=== PATIENT | male | born 1950 | race Caucasian/White ===

== ENCOUNTER 2022-01-07 14:19 | Outpatient (CLI) | payer OTHER, SELFPAY ==
--- NOTE | 2022-01-07 11:30 | DI.RAD_ITS ---
Exam(s) XR HAND LT COMPLETE XR WRIST LT COMPLETE EXAM: XR WRIST LT COMPLETE CLINICAL HISTORY: LT Wrist Pain M25.532 - Effusion M25.432 - Fall W19.XXXA. TECHNIQUE: 2D digital imaging was performed. Three views of the wrist and three views of the hand w ere performed.. COMPARISON: CR XR HAND LT COMPLETE from 01/07/2022 FINDINGS: BONES: No acute fracture is present. No bony destructive lesion is seen. 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 JOINTS: The carpal bones are normally aligned. Mild degenerative changes. SOFT TISSUE: Soft tissue swelling over the the dorsal metacarpal region. Mild vascular calcification s. IMPRESSION: Dorsal soft tissue swelling. No acute fracture. DATA REPOSITORY: RADIATION DOSE DELIVERED:
== END 2022-01-07 14:39 ==
PROVIDERS: PCP Family Medicine; Visit Provider Nurse Practitioner
DX: M25.432 Effusion, left wrist (principal); M25.532 Pain in left wrist; W19.XXXA Unspecified fall, initial encounter; M79.642 Pain in left hand; M79.89 Other specified soft tissue disorders
CPT/HCPCS: 73110; 73130

== ENCOUNTER 2022-06-10 03:26 | Outpatient (CLI) | payer OTHER, SELFPAY ==
[2022-06-10 11:08] LABS: ALT 26 U/L (16-63); AST 12 U/L (15-37); Albumin 3.9 g/dL (3.4-5.0); Alkaline Phosphatase 65 U/L (46-116); Anion Gap 8.1 mmol/L (3-11); BUN 30 mg/dL (7-18); Bilirubin, Total 0.4 mg/dL (0.2-1.0); CO2 29.9 mmol/L (21.0-32.0); CREATININE 1.1 mg/dL (0.70-1.30); Calcium 9.5 mg/dL (8.5-10.1); Chloride 102 mmol/L (98-107); Cholesterol 233 mg/dL (<200); Estimated GFR 70.88 (mL/min/1.73m2); Glucose 115 mg/dL (74-106); HDL Cholesterol 41 mg/dL (40-60); Potassium 4.4 mmol/L (3.5-5.1); Sodium 140 mmol/L (136-145); Triglyceride 478 mg/dL (<150)
[2022-06-10 11:20] LABS: LDL CHOLESTEROL 113 mg/dL (<100)
== END 2022-06-10 03:27 | disposition home or self-care (01) ==
LOC: LBO 03:26
PROVIDERS: PCP Family Medicine; Visit Provider Family Medicine
DX: I10 Essential (primary) hypertension (principal); M21.611 Bunion of right foot; M21.612 Bunion of left foot
CPT/HCPCS: 36415; 80053; 80061; 83721; 84550

== ENCOUNTER 2023-12-14 04:55 | Outpatient (CLI) | payer OTHER, MEDICAID, SELFPAY ==
[2023-12-14 09:59] LABS: Anion Gap 9.7 mmol/L (3-11); BUN 26 mg/dL (7-18); CO2 29.3 mmol/L (21.0-32.0); CREATININE 1.2 mg/dL (0.70-1.30); Calcium 9.5 mg/dL (8.5-10.1); Chloride 102 mmol/L (98-107); Estimated GFR 63.46 (mL/min/1.73m2); Glucose 122 mg/dL (74-106); Potassium 4.4 mmol/L (3.5-5.1); Sodium 141 mmol/L (136-145)
[2023-12-14 10:48] LABS: Calculated LDL 110 mg/dL (<100); Cholesterol 214 mg/dL (<200); HDL Cholesterol 51 mg/dL (40-60); Triglyceride 268 mg/dL (<150)
== END 2023-12-14 04:56 | disposition home or self-care (01) ==
LOC: LBO 04:55
PROVIDERS: Absent Provider Family Medicine; PCP Student in an Organized Health Care Education/Training Program; Visit Provider Family Medicine
DX: I10 Essential (primary) hypertension (principal); E79.0 Hyperuricemia without signs of inflammatory arthritis and tophaceous disease
CPT/HCPCS: 36415; 80048; 80061; 84550

== ENCOUNTER 2024-06-02 16:27 | Outpatient (REF) | payer OTHER, MEDICAID, SELFPAY ==
--- NOTE | 2024-06-02 13:15 | SKI_PTH ---
PATIENT: Juan J Diamond LOC: [facility] U#:[id number] AGE/SX: 74/M ROOM: RE06/02/[address]: Jose Ken DO : 1950 BED: DIS: 06/02/2024 SPEC #: [id number] RECD: 06/02/24 18:31 STATUS: KAYLAH REQ #: [id number] JAMES: 06/02/24 13:[address]: Jose Ken DEPT: Surgical Specimen RECD BY: Bridget Campos ENTERED: 06/02/24 18:32 SP TYPE: SKI OTHR DR: Gunjan Doherty DO Tissues: 1 - SKIN BIOPSY(SHAVE/PUNCH) Procedures: SKIN LEVEL 4 Comments: [id number]
== END 2024-06-02 16:28 | disposition home or self-care (01) ==
LOC: LBN 16:27
PROVIDERS: PCP Student in an Organized Health Care Education/Training Program; Visit Provider Otolaryngology Otolaryngology/Facial Plastic Surgery
DX: H61.91 Disorder of right external ear, unspecified (principal); L98.9 Disorder of the skin and subcutaneous tissue, unspecified; H61.001 Unspecified perichondritis of right external ear
CPT/HCPCS: 88305

== ENCOUNTER 2025-01-03 13:10 | Emergency (ER) | payer MEDICARE, MEDICAID, SELFPAY ==
[2025-01-03] VITALS (39 sets, daily range): BP systolic 148–199; BP diastolic 65–77; PULSE 58–83; RESP 13–57; TEMP 37; O2SAT 92–98
--- NOTE | 2025-01-03 13:30 | RT.EKG_ITS ---
APPROVED REPORT Exam: Resting ECG Reason for Exam: ataxia dizziness Patient Location: E HR:64 bpm ECG Measurements Heart Rate 64 AXIS WI 162 P 40 QRSd 94 QRS 53 QT 393 T 58 QTc 407 Conclusion Sinus rhythm...normal P axis, V-rate 60- 99 Physician: No Stemi
--- NOTE | 2025-01-03 13:30 | DI.CT_ITS ---
Exam(s) CT BRAIN NECK CTA EXAM: CT BRAIN NECK CTA CLINICAL HISTORY: ataxia x2 months, hx CVA, family Hx brain Ca. TECHNIQUE: Imaging Protocol: Axial CT angiography was performed with multi-slice acquisition and mu lti-planar and/or 3D reconstructions. CONTRAST MATERIAL: Intravenous: Omnipaque 350 Contrast volume:70 mL COMPARISON: No exams were available for comparison FINDINGS: CTA Neck W: Aortic arch anatomy: The aortic arch anatomy is conventional and there is no significant stenosis at the origin of the great vessels off of the aortic arch. No intimal flap evident. Anterior circulation: Both common carotid arteries ascend with normal luminal diameters. At the level the carotid bulbs and proximal internal carotid arteries there is both calcified and non calcified plaque seen bilaterally. There is approximately 50-60 percent stenosis in the proximal rig ht ICA. Approximately 30 percent stenosis in the proximal left ICA. In the upper neck both internal carotid arteries are patent as well as within the skull base-carotid canals. Posterior circulation: The left vertebral artery originates off of the left subclavian artery without obvious stenosis at it s origin nor in the left subclavian artery proximal to the vertebral artery takeoff point. The left vertebral artery is dominant and ascends within the foramen transversarium with a luminal diameter 3. 5-4.0 mm. No stenosis nor dissection this vessel evident. There is peripheral mural calcification i n the left vertebral artery at the skull base. Some none critical stenosis at this level noted. a the right vertebral artery does not appear opacified proximally but is a thin opacified vessel in t he right foramen transversarium at and above the C5 level. This thinner right vertebral artery also does contribute to the formation of the basilar artery at the skull base. CTA Brain W: Anterior circulation: Both internal carotid arteries are patent in the skull base-carotid canals as well as within the cave rnous sinuses. There is circumferential calcification of the infer cavernous internal carotid arteri es bilaterally but without a critical stenosis in their lumens at these levels. The supraclinoid asp ects are patent and non stenotic nor nonaneurysmal. Both A1 segments are patent as are the anterior cerebral arteries and there is no aneurysm at the level the anterior communicating artery. Both middle cerebral arteries are patent a without significant stenosis nor aneurysms Posterior circulation: Basilar artery ascends without significant stenosis. Distally gives off superior cerebellar arteries and above this level terminates as posterior cerebral arteries. The right P1 segment is more narrow than the left but there is a posterior communicating artery on the right side of the mhaqbz-of-Zhkrq s also feeding the right ST[employer] DRI[employer]. There is no evidence of aneurysm at the tip of the basilar artery nor elsewhere in the yuvajq-ze-Kzks is. CT BRAIN: There are no skull fractures. Hyperostosis frontalis interna is noted. There is some more than typi mono lucency in the right-side of the skull with in the right temporal bone. There is no evidence of intracranial hemorrhage but there is a E large enhancing dural-based mass ove r the right convexity measuring 5.3 cm AP 4 cm wide by 2.7 cm craniocaudal which is probably a promin ent meningioma. There is some associated mass effect and adjacent edema.. Ventricular size is rudi l. Septum cavum pellucidum noted. There is no blood within the ventricular system nor within the ba brijesh cisterns. No shift of midline structures There is abundant bilateral periventricular hypodensity consistent with chronic small vessel disease. There also lacunar infarcts in the right more than left cerebellar hemispheres. IMPRESSION: 1. There is both calcified and noncalcified plaque at the level the carotid bulbs and proximal customer marketing intern al carotid arteries. Amount of stenosis on the right side at this level is approximately 50-60 perce nt. Amount of stenosis on the left side at this level appears less, proximally 30 percent stenosis i n the proximal left ICA. 2. Left vertebral artery is patent. The thinner right vertebral artery is only opacified at and abo ve the C5 level. It does contribute to the formation of the basilar artery at the skull base. 3. Patent intracranial arteries. 4. Large uniformly enhancing dural-based mass in the right fronto-parietal lobe region which measures 5.3 x 4.0 x 2.7 cm and is most probably a meningioma. There is mild adjacent mass effect. No shift of midline structures. 5. There are no ring enhancing lesions in the brain. No intracranial hemorrhage 6. Abundant periventricular white matter hypodensity consistent with chronic small vessel disease and there also lacune are infarcts in the bilateral cerebellar hemispheres, right more so than left. Follow-up MRI recommended. Report called by myself to ER physician 01/03/2025 at 3:40 p.m. RADIATION DOSE DELIVERED: 2,268.01mGy.cm Total DLP DATA REPOSITORY: All CT scans at this facility are submitted to the National Radiology Data Registry (NRDR) Dose Index Registry (DIR) with the [employer] (A[employer]). RADIATION OPTIMIZATION: All CT scans at this facility use at least one of these dose optimization te chniques: automated exposure control; mA and/or kV adjustment per patient size (includes targeted exa ms where dose is matched to clinical indication); or iterative reconstruction.
--- NOTE | 2025-01-03 13:45 | ED.GENADUL_ITS ---
Discharge Plan Disposition Patient Disposition: Against Medical Advice Condition: Fair Discharge Details Clinical Impression: Ataxia, Hypertension, Hyperlipidemia, Cerebellar stroke, Brain mass Primary Care Provider: Gunjan Doherty ED Provider: Jessie Liao Home Meds and New Rx's Prescriptions: No Action potassium chloride 10 mEq packet 10 meq PO DAILY [id number] Tablet 1 tab PO DAILY lactic acid-urea 10-40 % gel 1 applic topical BID Qty: 120 0RF magnesium oxide 500 mg capsule 1,000 mg PO DAILY cholecalciferol (vitamin D3) 50 mcg (2,000 unit) capsule 50 mcg PO DAILY aspirin 81 mg tablet,delayed release (DR/EC) 81 mg PO DAILY ascorbic acid (vitamin C) 500 mg capsule 500 mg PO DAILY krill oil 3,000 mg PO DAILY lisinopril-hydrochlorothiazide 20-25 mg tablet 1 tab PO DAILY Qty: 90 3RF Discharge Instructions Instructions: Brainstem Stroke Additional Instructions: You were seen in the emergency department today for evaluation of ataxia, meaning poor balance during walking, and were found on CT scan to have evidence of stroke in the area of your brain that controls your balance. In our department you were also noted to have a large mass on the right side of your brain, probably a meningioma. However, you have elected to leave the hospital AGAINST MEDICAL ADVICE prior to meeting with the teleneurologist, and before we were able to get further imaging such as an MRI to better characterize these fi ndings. A referral was sent to neurosurgery, and they will have to order any outpatient scans for you. You are always welcome to return to the emergency department, at which time we would recommend getting MRI imaging and may continue to recommend neurology visit, admission, and changes to your medications. Please follow-up with your primary care provider in the next few days to discuss this visit and any symptoms that change, worsen, or persist. Thank you for allowing us to be part of your care. HPI General Mode of arrival: ambulatory . Date/Time Provider Initiated Documentation: 01/03/25 13:13 . Limitations to Documentation: no limitations . Information obtained by: patient, family and old records reviewed . HPI Narrative: This is a 74-year-old male patient with a history of CVA without significant residual deficits other than blurry vision, history of hypertension and hyperlipidemia who is presenting for evaluation of 2 months of ataxia, suddenly worsening yesterday. He reports experiencing difficulty in maintaining balance during ambulation, states that he feels like he is drunk. This symptom has been present for approximately 2 months, with varying intensity. He notes a recent exacerbation of these symptoms over the past two days. He has been supplementing with vitamin D and vitamin K at high doses, and other supplements and vitamins. He also reports no recent falls or injuries, including head trauma. He does not experience any weakness or numbness in his body. His appetite and hydration status are normal, with a reported intake of 2 quarts of water yesterday. He is currently on lisinopril and a vitamin D supplement containing potassium, has started an ashgawanda supplement but this was initiated after the onset of his ataxia. He has a history of stroke in 1999, which resulted in memory impairment and blurry vision but no physical deficits. He has been experiencing blurred vision for several years, which has remained stable. He does not report any associated headaches or vertigo. 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 Related Data Home Medications ?Medication ?Instructions ?Recorded ?Confirmed ascorbic acid (vitamin C) 500 mg 500 mg PO DAILY 12/08/21 01/03/25 capsule aspirin 81 mg tablet,delayed 81 mg PO DAILY 12/08/21 01/03/25 release cholecalciferol (vitamin D3) 50 50 mcg PO DAILY 12/08/21 01/03/25 mcg (2,000 unit) capsule magnesium oxide 500 mg capsule 1,000 mg PO DAILY 12/08/21 01/03/25 krill oil 3,000 mg PO DAILY 03/10/24 01/03/25 lisinopril 20 1 tab PO DAILY #90 tabs 03/19/24 01/03/25 mg-hydrochlorothiazide 25 mg tablet [id number] tablet 1 tab PO DAILY 06/27/24 01/03/25 lactic acid 10 %-urea 40 % topical 1 applic topical BID #120 grams 06/27/24 01/03/25 gel potassium chloride 10 mEq oral 10 meq PO DAILY 06/27/24 01/03/25 packet Previous Rx's ?Medication ?Instructions ?Recorded lisinopril 20 1 tab PO DAILY #90 tabs 03/19/24 mg-hydrochlorothiazide 25 mg tablet lactic acid 10 %-urea 40 % topical 1 applic topical BID #120 grams 06/27/24 gel Allergies Allergy/AdvReac Type Severity Reaction Status Date / Time No Known Allergies Allergy Verified 01/03/25 13:21 General Stated Complaint: Dizzy/Sync CRESENCIO: 3 Exam Narrative Exam Narrative: Gen: awake and alert, in no apparent distress. Appears well nourished. HEENT: PERRL, EOMs full and without nystagmus, and EOMs do not exacerbate the patient's dizziness/vertigo. External ears and nose normal, TMs clear mucous membranes moist. Neck: Supple, full range of motion, no observable masses Lungs: No increased work of breathing, lung sounds clear and equal bilaterally without wheezes, rhonchi, or rales. CV: Heart with regular rate and rhythm, no murmurs auscultated. Strong and symmetrical radial pulses. Abdomen: Soft, nondistended, non-tender to palpation. No rigidity, rebound tenderness, or guarding. MSK: No joint swelling, no redness. Full ROM without limitation, no external traumatic findings. Skin: No rashes or lesions to visualized skin. Normal color, warm, and dry. Neuro: Cranial nerves II-XII intact and symmetrical bilaterally. 5/5 strength in all muscle groups x4 extremities. No sensory deficits. Ambulates with steady gait though the patient is noted to occasionally use arms to preserve balance. No difficulties with adtcwv-vp-mcto or sqdc-dg-unfs testing. Psych: Appropriate for situation. Course Vital Signs Vital signs: Vital Signs Temperature 37.0 C 01/03/25 13:16 Pulse 75 01/03/25 13:16 Respiratory Rate 20 01/03/25 13:16 Blood Pressure 148/71 H 01/03/25 13:16 Pulse Oximetry 95 01/03/25 13:16 Temperature 37.0 C 01/03/25 13:16 Pulse 75 01/03/25 13:16 Respiratory Rate 20 01/03/25 13:16 Respiratory Effort Normal 01/03/25 13:38 Respiratory Depth Normal 01/03/25 13:38 Respiratory Pattern Normal 01/03/25 13:38 Blood Pressure 148/71 H 01/03/25 13:16 Blood Pressure Position Sitting 01/03/25 13:16 Pulse Oximetry 95 01/03/25 13:16 Oxygen Delivery Method Room Air 01/03/25 13:16 Oxygen Flow Rate 0 01/03/25 13:16 Medical Decision Making In brief, this is a 74-year-old male patient with a history of CVA, hyperlipidemia, and hypertension who is presenting for evaluation of 2 months of worsening ataxia and dizziness. At this time, the patient is reassuringly without active dizziness, though he does feel like his gait is continuing to be affected. My differential includes but is not limited to intracranial abnormality including stroke, hemorrhage, vascular abnormality, mass effect (patient reports a family history of brain tumors and he himself is most concerned about this etiology). I considered inner ear abnormalities including M?ni?re's disease, labyrinthitis, timing of symptoms would be less consistent with BPPV. I considered metabolic and electrolyte derangements, vitamin deficiencies, specifically B12 given its role in proprioception. Considered ACS, arrhythmia. The patient at this time is reassuringly neuro intact, hemodynamically appropriate. We will obtain an EKG, laboratory studies to include CBC, CMP, magnesium, troponin, and INR. Will proceed with CTA of the brain and neck to better characterize any abnormalities which might explain his symptoms. - I independently interpreted the laboratory studies, which show no significant leukocytosis, anemia, or thrombocytopenia. The chemistry panel is without evidence of electrolyte abnormality or liver injury. The patient does have a mild elevation in his kidney function with a BUN of 26 and a creatinine of 1.6. INR is 1.0, vitamin B12 is supratherapeutic at 1300. Troponin negative[address] CT was reviewed by myself and discussed with the radiologist. The patient has evidence of multiple cerebellar lacunar strokes, likely the cause of his ataxia. He also has a large right sided lesion, concerning for meningioma. Given the size, which is in excess of 5 cm, it is unclear if this could be contributing to the symptoms as well, though there is minimal mass effect noted on the scan. Given this finding I did reach out to [facility] to discuss the case with neurosurgery. I am not able to get an MRI at this hospital today, and anticipate that the patient could benefit from admission for stroke medication optimization, and MRI tomorrow. I did discuss the case with the neurosurgeon at [facility] who recommended this, stating that MRI in the morning was the preferred recommendation. The patient unfortunately elected to leave the hospital AMA despite multiple shared decision-making conversations by this provider, prior to having his visit with the [facility] teleneurologist. The patient has capacity to make this decision, understands the risks associated with leaving the hospital prior to optimization of his medical management and definitive imaging. He understands that he can return to the emergency department at anytime for reevaluation, and a referral to neurosurgery and neurology will be made on behalf of the patient so that he at least can have outpatient follow-up for his conditions identified today. The patient left our facility without further incident. Jessie Liao MD Medical Records Medical records reviewed: Yes I reviewed the patient's medical records. Lab Data Lab results reviewed: Yes I reviewed the patient's lab results. Quality:SDOH Health Related Social Needs: No Data to Display [facility] All Active Problems (Updated 01/03/25 @ 17:57 by Jessie Liao MD) Brain mass (Acute) Cerebellar stroke (Acute) Ataxia (Acute) Actinic keratoses (Acute) Skin lesion of right ear (Acute) Rt [place], sun-exposure presumed Hyperuricemia (Acute) Hyperlipidemia (Chronic) [place] score 48% in 2021 Bilateral bunions (Acute) Wears hearing aid in both ears (Acute) Hypertension (Chronic) Medical History (Updated 01/03/25 @ 17:57 by Jessie Liao MD) CVA (cerebral vascular accident) (~1999) Surgical History (Updated 12/17/22 @ 17:11 by Charity Richard) History of laser iridotomy (08/24/22) Left eye - Dr Jain @ [facility] Family History (Updated 12/02/21 @ 14:46 by Angy Galdamez) Mother Cancer brain Diabetes Father Hypertension Social History (Updated 12/10/22 @ 15:50 by Charity Richard) Smoking/Tobacco Use Status: Never Second Hand Exposure: No Smoking risk assessment performed?: Yes Alcohol Intake: current Alcohol Intake frequency: a few times a month Drug use: Never Substance use type: does not use Adopted: No Caregiver/Support person: No Foster care: No Housing: apartment Number of Children: 1 number of grandchildren: 0 Communication Needs: None Education Level: vocational Do you need help understanding health information?: Often Pets and animals: No Sexually active: No Do you think of yourself as: straight/heterosexual Current gender identity: male What is your relationship status?: How often do you talk on the phone with friends or family?: three or more times per week How often do you get together with friends or relatives?: three or more times per week Do you belong to any clubs or organized social groups?: no Panel score (0-1 are the most socially isolated patients): 1 What type of physical activity do you participate in: decline to answer Duration: decline to answer Frequency: decline to answer Maeve/Scientology: Uatsdin Special maeve needs: Yes Agree to transfusion: No Seatbelt use: always Helmet use: Yes Drive intox or ride w/intox warehouse delivery driver: No
[2025-01-03 13:49] LABS: Abs Immature Grans 0.04 10^3/uL (0.0-0.06); Absolute Basophil Count 0.03 10^3/uL (0.0-0.2); Absolute Eosinophil Count 0.17 10^3/uL (0.0-0.7); Absolute Lymphocyte Count 2.42 10^3/uL (1.2-3.4); Absolute Monocyte Count 1.16 10^3/uL (0.1-0.8); Absolute Neutrophil Count 6.75 10^3/uL (1.2-6.7); Basophils % 0.3 %; Eosinophils % 1.6 %; HCT 48.3 % (40.0-50.0); HGB 16.5 g/dL (13.5-17.5); Immature Grans % 0.4 %; Lymphocytes % 22.9 %; MCH 32.7 pg (27.0-33.0); MCHC 34.2 % (32.0-36.0); MCV 96 fL (80-95); MPV 11.4 fL (8.0-11.0); Neutrophils % 63.8 %; Platelet Count 172 10^3/uL (130-400); RBC 5.04 10^6/uL (4.36-5.78); RDW 12.3 % (11.8-14.1); RDW-SD 43.6 fL; WBC 10.57 10^3/uL (4.4-10.8)
[2025-01-03 14:03] LABS: Prothrombin Time 10.2 sec (9.1-11.1)
[2025-01-03 14:06] LABS: ALT 35 U/L (16-63); AST 30 U/L (15-37); Albumin 4.1 g/dL (3.4-5.0); Alkaline Phosphatase 77 U/L (46-116); Anion Gap 8.7 mmol/L (3-11); BUN 26 mg/dL (7-18); Bilirubin, Total 0.9 mg/dL (0.2-1.0); CO2 31.3 mmol/L (21.0-32.0); CREATININE 1.6 mg/dL (0.70-1.30); Calcium 9.7 mg/dL (8.5-10.1); Chloride 101 mmol/L (98-107); Estimated GFR 44.65 (mL/min/1.73m2); Glucose 125 mg/dL (74-106); Sodium 141 mmol/L (136-145); Total Protein 8.3 g/dL (6.4-8.2); Troponin I 10 ng/L (<or=76)
[2025-01-03 14:33] LABS: Lab Add On Test DONE
[2025-01-03 15:03] LABS: Troponin I 9 ng/L (<or=76)
[2025-01-03] MEDS: Omnipaque 350 MG/ML 500 ML BTL-Imaging package IJ (15:07)
[2025-01-03] MEDS: Normal Saline - Diluent 50 ML VIAL IJ (15:08)
[2025-01-03 15:57] LABS: Vitamin B12 1335 pg/mL (193-986)
--- NOTE | 2025-01-03 17:47 | NUR.NOTE ---
Nursing Note:pt wanting to leave, discussed HERBERT grimaldo/ [facility] at bedside. Pt not wanting inpatient stay even if it is recommended. pt would prefer outpatient management of medical conditions. pt pulled of BP cuff. surveillance system monitor and o2 monitor, states wont allow me to monitor him further because he doesn't need it. pt redirected from pulling out iv. Neuro cart in room for tele neuro call. pt only accepted this because teleneuro called us back at this time. pt is axox4, independent at bedside, standing at bedside waiting for tele neuro.
--- NOTE | 2025-01-03 18:02 | NUR.NOTE ---
Nursing Note:pt was checked into tele neuro, but decided to leave AMA during.
[2025-01-15 08:17] LABS: 1,25-Dihydroxyvitamin D 45 pg/mL (18-64)
== END 2025-01-03 22:56 | disposition left against medical advice (07) ==
PROVIDERS: Emergency Provider Emergency Medicine; PCP Student in an Organized Health Care Education/Training Program
DX: I63.89 Other cerebral infarction (principal); R26.0 Ataxic gait; I67.89 Other cerebrovascular disease; I10 Essential (primary) hypertension; E78.5 Hyperlipidemia, unspecified; Z86.73 Personal history of transient ischemic attack (TIA), and cerebral infarction without residual deficits; Z79.82 Long term (current) use of aspirin; Z53.29 Procedure and treatment not carried out because of patient's decision for other reasons
CPT/HCPCS: 36415; 70496; 70498; 80053; 93005; 99285; 82607; 82652; 83735; 84484; 85025; 85610; 93010

== ENCOUNTER 2025-02-21 07:46 | Outpatient (CLI) | payer MEDICARE, MEDICAID, SELFPAY ==
[2025-02-21 08:11] LABS: Abs Immature Grans 0.04 10^3/uL (0.0-0.06); Absolute Basophil Count 0.02 10^3/uL (0.0-0.2); Absolute Eosinophil Count 0.26 10^3/uL (0.0-0.7); Absolute Lymphocyte Count 2.92 10^3/uL (1.2-3.4); Absolute Monocyte Count 1.06 10^3/uL (0.1-0.8); Absolute Neutrophil Count 5.82 10^3/uL (1.2-6.7); Basophils % 0.2 %; Eosinophils % 2.6 %; HCT 44.9 % (40.0-50.0); HGB 14.8 g/dL (13.5-17.5); Immature Grans % 0.4 %; Lymphocytes % 28.9 %; MCH 31.7 pg (27.0-33.0); MCV 96 fL (80-95); Monocytes % 10.5 %; Neutrophils % 57.4 %; Platelet Count 140 10^3/uL (130-400); RBC 4.67 10^6/uL (4.36-5.78); RDW 12.3 % (11.8-14.1); RDW-SD 43.8 fL; WBC 10.12 10^3/uL (4.4-10.8)
[2025-02-21 08:34] LABS: Bilirubin Negative (Negative); Blood Negative (Negative); Clarity Clear (Clear); Glucose Negative (Negative); Ketones Negative (Negative); Leukocyte Esterase Negative (Negative); Nitrite Negative (Negative); Urobilinogen 0.2 mg/dL (Up to 0.2); pH 5.5 (5-8)
[2025-02-21 08:50] LABS: ALT 40 U/L (16-63); AST 24 U/L (15-37); Albumin 3.8 g/dL (3.4-5.0); Alkaline Phosphatase 71 U/L (46-116); Anion Gap 7.1 mmol/L (3-11); BUN 21 mg/dL (7-18); Bilirubin, Total 0.5 mg/dL (0.2-1.0); CO2 32.9 mmol/L (21.0-32.0); CREATININE 1.2 mg/dL (0.70-1.30); Calcium 9.4 mg/dL (8.5-10.1); Chloride 101 mmol/L (98-107); Estimated GFR 63.07 (mL/min/1.73m2); Glucose 124 mg/dL (74-106); Potassium 4.3 mmol/L (3.5-5.1); Sodium 141 mmol/L (136-145); Total Protein 7.7 g/dL (6.4-8.2)
[2025-02-21 09:12] LABS: Calculated LDL 85 mg/dL (<100); Cholesterol 171 mg/dL (<200); HDL Cholesterol 44 mg/dL (>or=40); TSH 2.63 uIU/mL (0.36-3.74); Triglyceride 212 mg/dL (<150); Vitamin D 25 Total 59 ng/mL (30-100)
[2025-02-21 18:00] LABS: PSA, Screening 2.2 ng/mL (<=6.5)
== END 2025-02-21 07:47 | disposition home or self-care (01) ==
LOC: LBO 07:47
PROVIDERS: PCP Student in an Organized Health Care Education/Training Program; Visit Provider Family Medicine
DX: I10 Essential (primary) hypertension (principal); Z91.89 Other specified personal risk factors, not elsewhere classified; R73.09 Other abnormal glucose; K90.9 Intestinal malabsorption, unspecified; R39.11 Hesitancy of micturition; N40.1 Benign prostatic hyperplasia with lower urinary tract symptoms; D64.9 Anemia, unspecified; Z13.9 Encounter for screening, unspecified; E78.5 Hyperlipidemia, unspecified
CPT/HCPCS: 36415; 80048; 80053; 80061; 82306; 84153; 81003; 83036; 83735; 84443; 85025

== ENCOUNTER 2025-05-16 14:54 | Outpatient (CLI) | payer MEDICARE, MEDICAID, SELFPAY ==
--- NOTE | 2025-05-16 06:15 | DI.MRI_ITS ---
Exam(s) MR BRAIN WO/W EXAM: MR BRAIN WO/W CLINICAL HISTORY: strokes and mass D42.9 Z86.73 TIA I67.89 R27.0 ATAXIA. TECHNIQUE: Multiplanar multisequence MRI of the brain was performed. CONTRAST MATERIAL: IV Contrast: 19 ML of Dotarem contrast administered. COMPARISON: CT CT BRAIN NECK CTA from 01/03/2025 FINDINGS: VENTRICLES AND EXTRA AXIAL SPACES: Normal in size and morphology for the patient's age. Patent cavum septum pellucidum. HEMORRHAGE: None. CEREBRAL PARENCHYMA: No focus of restricted diffusion to suggest acute infarct. Enhancing dural-based mass in the right high frontal parietal region measuring 3.8 x 2.8 by 5.6 cm. This is not significantly changed from the prior given differences in measurement technique. No additional enhancing masses are seen. Findings are consistent with a meningioma. There is mass effect upon the adjacent brain but no significant edema or invasive qualities. There is no associated diffusion restriction with this lesion. Significant patchy bilateral areas of high signal are present in the white matter consistent with sequela of chronic microvascular ischemia. BRAINSTEM/CEREBELLUM: Small old cerebellar infarcts. CALVARIUM: Nonspecific skull thickening near the vertex. No destructive lesions. VISUALIZED PARANASAL SINUSES/MASTOIDS: Mild mucosal thickening. Orbits: Unremarkable. Pituitary: Not enlarged. Vasculature: Normal flow voids. IMPRESSION: Stable size of the previously noted meningioma at the high right frontoparietal region. There is mass effect on the adjacent brain but no edema or invasive qualities. Old left posterior parietal infarct. No evidence of acute infarct. DATA REPOSITORY:
[2025-05-16] MEDS: Gadoterate meglumine 20 ML SYRINGE IVP (15:12)
[2025-05-16] MEDS: Normal Saline Flush 10 ML SYR IVP (15:13)
== END 2025-05-16 15:14 ==
LOC: DI 14:54
PROVIDERS: PCP Student in an Organized Health Care Education/Training Program; Visit Provider Family Medicine
DX: I67.89 Other cerebrovascular disease (principal); D42.9 Neoplasm of uncertain behavior of meninges, unspecified; Z86.73 Personal history of transient ischemic attack (TIA), and cerebral infarction without residual deficits; R27.0 Ataxia, unspecified
CPT/HCPCS: 70553